=== PATIENT | male | born 1955 | race Two or more races ===

== ENCOUNTER 2023-07-24 07:30 | Emergency (ER) | payer MEDICARE, MEDICAID, OTHER ==
[~2023-07-24] VITALS: Ht 177.8 cm; Wt 77.2 kg
[2023-07-24 09:17] VITALS: BP 144/55; PULSE 82; RESP 18; TEMP 97.6; O2SAT 100
[2023-07-24] MEDS ORDERED: HYDROcodone-ACET 5/325MG TAB PO ONE (10:00)
[2023-07-24] MEDS ORDERED: ACET-1304 PO (11:43)
[2023-07-24] MEDS ORDERED: LIDO5CRE14 EX (11:43)
== END 2023-07-24 11:53 | disposition home or self-care (01) ==
LOC: EDBD 07:30 → ER 07:30
DX: R10.9 Unspecified abdominal pain (principal); R07.81 Pleurodynia; Z79.899 Other long term (current) drug therapy; I12.0 Hypertensive chronic kidney disease with stage 5 chronic kidney disease or end stage renal disease; N18.6 End stage renal disease; V43.52XA Car driver injured in collision with other type car in traffic accident, initial encounter; Y93.89 Activity, other specified; Y92.89 Other specified places as the place of occurrence of the external cause; Y99.8 Other external cause status
CPT/HCPCS: 71101